=== PATIENT | female | born 1995 | race Caucasian/White ===

== ENCOUNTER 2022-01-15 20:15 | Inpatient (IN) | payer SELFPAY ==
[~2022-01-15] VITALS: Ht 162.6 cm; Wt 72.9 kg
[2022-01-15] VITALS (8 sets, daily range): BP systolic 106–129; BP diastolic 56–70
[2022-01-15] MEDS ORDERED: D5 LR IV SOLUTION 1,000 ML IV ONE (20:43)
[2022-01-15] MEDS ORDERED: AMPICILLIN FOR IV USE 2,000 MG in NS (IVPB) 50 ML IV SCH (20:48)
[2022-01-15] MEDS ORDERED: AMPICILLIN 2,000 MG/14.8 ML (IV USE) ONE (20:52)
[2022-01-15] MEDS ORDERED: NS (IVPB) 50 ML ONE (20:53)
[2022-01-15 20:58] LABS: BASOPHILS % (AUTO) 0 % (0-10); EOSINOPHILS % (AUTO) 0 % (0-10); HEMATOCRIT 28 % (35-52); HEMOGLOBIN 8.5 g/dL (11.5-16.0); LYMPHOCYTES # (AUTO) 1.1 10^3/uL (1.0-4.0); LYMPHOCYTES % (AUTO) 17 % (12-44); MEAN CORPUSCULAR HEMOGLOBIN 25 pg (25-34); MEAN CORPUSCULAR HGB CONC 30 g/dL (32-36); MEAN CORPUSCULAR VOLUME 82 fL (80-99); MEAN PLATELET VOLUME 11.4 fL (9.0-12.2); MONOCYTES # (AUTO) 0.7 10^3/uL (0.0-1.0); MONOCYTES % (AUTO) 10 % (0-12); NEUTROPHILS # (AUTO) 4.6 10^3/uL (1.8-7.8); NEUTROPHILS % (AUTO) 72 % (42-75); PLATELET COUNT 160 10^3/uL (130-400); WHITE BLOOD COUNT 6.4 10^3/uL (4.3-11.0)
[2022-01-15] MEDS ORDERED: D5 LR IV SOLUTION 1,000 ML IV SCH (21:00)
[2022-01-15] MEDS ORDERED: MINERAL OIL 30 ML OIL TOP PRN (21:00)
[2022-01-15] MEDS ORDERED: LIDOCAINE/EPI 2% 1:200,00 (XYLOCAINE) 10 ML VIAL ONE (21:31)
[2022-01-15] MEDS ORDERED: OXYTOCIN PRE-MIX DRIP 500 ML IV ONE ×2 (21:31→23:11)
--- NOTE | 2022-01-15 21:35 | History & Physical-OB ---
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) Ultrasounds: No ultrasounds Obstetrical Complications: None Medical Complications: None Obstetrical History Hx : 5 Hx Para: 4 Hx # Term Pregnancies: 4 Hx # Pregnancies: 1 Number of Living Children: 4 Delivery History Hx Large For Gestational Age I: Yes Patient Past Medical History denies Immunizations Influenza Vaccine Up-to-Date: No; Not Current Tetanus Booster (TDap): Unknown Rubella: unknown RPR/VDRL: Unknown GBS Status: Unknown HBsAG: Unknown OB - Admission Exam Physical Exam Vitals: Vital Signs Abdomen: Gravid Cervical Dilatation: 7cm Effacement: 100% Station: +1 Membranes: Ruptured (AROM clear fluid) Heart Rate: 150's Accelerations: Accelerations Present Decelerations: No Decelerations Short Term Variability: Present School Adjustment Counselor Variability: Average (6-25) Contractions on Admission: 6-10 Minutes Apart Intensity: Moderate Labs Laboratory Tests Test 01/15/22 20:45 Range/Units White Blood Count 6.4 4.3-11.0 10^3/uL Red Blood Count 3.42 L 3.80-5.11 10^6/uL Hemoglobin 8.5 L 11.5-16.0 g/dL Hematocrit 28 L 35-52 % Mean Corpuscular Volume 82 80-99 fL Mean Corpuscular Hemoglobin 25 25-34 pg Mean Corpuscular Hemoglobin Concent 30 L 32-36 g/dL Red Cell Distribution Width 16.9 H 10.0-14.5 % Platelet Count 160 130-400 10^3/uL Mean Platelet Volume 11.4 9.0-12.2 fL Immature Granulocyte % (Auto) 1 % Neutrophils (%) (Auto) 72 42-75 % Lymphocytes (%) (Auto) 17 12-44 % Monocytes (%) (Auto) 10 0-12 % Eosinophils (%) (Auto) 0 0-10 % Basophils (%) (Auto) 0 0-10 % Neutrophils # (Auto) 4.6 1.8-7.8 10^3/uL Lymphocytes # (Auto) 1.1 1.0-4.0 10^3/uL Monocytes # (Auto) 0.7 0.0-1.0 10^3/uL Eosinophils # (Auto) 0.0 0.0-0.3 10^3/uL Basophils # (Auto) 0.0 0.0-0.1 10^3/uL Immature Granulocyte # (Auto) 0.1 0.0-0.1 10^3/uL OB - Assessment/Plan/Diagnosis Assessment Assessment: active labor Admission Dx 37 week TRISTA Admission Status: Inpatient Order (span 2 midnights) Reason for Inpatient Admission: labor and delivery Plan Plan: Expectant Management Other Plan 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
[2022-01-15] MEDS ORDERED: CATHETER FLUSH 10 ML SYR IV SCH (22:00)
[2022-01-15] MEDS ORDERED: MINERAL OIL CONCENTRATE 99.9% 15 ML UDC ONE (22:16)
[2022-01-15] MEDS: OXYTOCIN PRE-MIX DRIP 500 ML IV SCH ×2 (22:41→23:17)
--- NOTE | 2022-01-15 22:59 | OB Labor & Delivery Record ---
Vag Delivery Note Vag Delivery Note Date of Delivery: 01/15/22 Preoperative Diagnosis: Suzanne Bueno is a (26 /Para 5 / 4, Gestational Age (wks)37with [] Postoperative Diagnosis: Same Surgeon: ANDRA PITTS Anesthesia: none Delivery Type: spontaneous vaginal Findings: Viable female , apgars 7/8, weight 8#2 Lacerations: first degree laceration repaired Intact placenta with 3 vessel cord. No nuchal cord, body cord or shoulder dystocia Estimated Blood Loss: 75 ml Complications: None Condition: Stable Description of Procedure: The patient is a 26 year old female who presented in active labor at 7cm. She was admitted and informed consent was obtained. Her labor course was unremarkable. She progressed to complete dilatation and began to push. She was then set up for delivery. The 's head was delivered atraumatically in the DEIRDRE position. The shoulders and remainder of the infant's body were then delivered without difficulty. Upon delivery, the head was held below the level of the perineum and the mouth and nares were bulb suctioned. The cord was doubly clamped and cut and placed on the maternal abdomen. An intact placenta with 3- vessel cord delivered via Flako and there was found to be minimal bleeding.~ Vigorous fundal massage was performed and the fundus was found to be firm. IV oxytocin was given. Examination of the vagina and perineum revealed a first degree laceration repaired in the usual fashion with 3-0 vicryl suture. Following the repair, sponge, instrument and needle counts were correct. Mom and baby were both in stable condition in the labor suite. Vitals - Labs Vital Signs - I&O Vital Signs Date Time Temp Pulse Resp B/P (MAP) Pulse Ox O2 Delivery O2 Flow Rate FiO2 01/15/22 20:36 36.6 122 18 127/58 (81) 100 Room Air 01/15/22 20:36 36.6 122 18 100 Room Air Labs Laboratory Tests 01/15/22 20:45: White Blood Count 6.4, Red Blood Count 3.42L, Hemoglobin 8.5L, Hematocrit 28L, Mean Corpuscular Volume 82, Mean Corpuscular Hemoglobin 25, Mean Corpuscular Hemoglobin Concent 30L, Red Cell Distribution Width 16.9H, Platelet Count 160, Mean Platelet Volume 11.4, Immature Granulocyte % (Auto) 1, Neutrophils (%) (Aut o) 72, Lymphocytes (%) (Auto) 17, Monocytes (%) (Auto) 10, Eosinophils (%) (Auto) 0, Basophils (%) (Auto) 0, Neutrophils # (Auto) 4.6, Lymphocytes # (Auto) 1.1, Monocytes # (Auto) 0.7, Eosinophils # (Auto) 0.0, Basophils # (Auto) 0.0, Immature Granulocyte # (Auto) 0.1 01/15/22 20:48: ANDRA PITTS DO Jan 15, 2022 22:59
[2022-01-15] MEDS ORDERED: WITCH HAZEL(TUCKS) 40 EA JAR TOP PRN (23:15)
[2022-01-15] MEDS ORDERED: BENZOCAINE/MENTHOL (DERMOPLAST) 56 ML CAN TP PRN (23:15)
[2022-01-15] MEDS ORDERED: MEASLES,MUMPS,RUBELLA 1 EA INJ SQ ONE (23:15)
[2022-01-15] MEDS ORDERED: TETANUS,DIPTH,PERTUSS P/F (BOOSTRIX) 0.5 ML VIAL IM ONE (23:15)
[2022-01-15] MEDS ORDERED: IBUPROFEN 600 MG (MOTRIN) TAB PO ONE (23:57)
[2022-01-15] MEDS: IBUPROFEN 600 MG (MOTRIN) TAB PO SCH (23:59)
[2022-01-16] VITALS (8 sets, daily range): BP systolic 90–107; BP diastolic 50–59
[2022-01-16] MEDS ORDERED: AMPICILLIN FOR IV USE 1,000 MG in NS (IVPB) 50 ML IV SCH (01:00)
[2022-01-16] MEDS ORDERED: CATHETER FLUSH 10 ML SYR IV SCH (06:00)
[2022-01-16] MEDS: IBUPROFEN 600 MG (MOTRIN) TAB PO SCH ×4 (06:57→23:50)
[2022-01-16 07:18] LABS: BASOPHILS % (AUTO) 0 % (0-10); EOSINOPHILS % (AUTO) 0 % (0-10); HEMATOCRIT 27 % (35-52); LYMPHOCYTES # (AUTO) 1.2 10^3/uL (1.0-4.0); LYMPHOCYTES % (AUTO) 23 % (12-44); MEAN CORPUSCULAR HEMOGLOBIN 25 pg (25-34); MEAN CORPUSCULAR HGB CONC 30 g/dL (32-36); MEAN CORPUSCULAR VOLUME 82 fL (80-99); MEAN PLATELET VOLUME 11.5 fL (9.0-12.2); MONOCYTES # (AUTO) 0.7 10^3/uL (0.0-1.0); MONOCYTES % (AUTO) 13 % (0-12); NEUTROPHILS # (AUTO) 3.2 10^3/uL (1.8-7.8); NEUTROPHILS % (AUTO) 63 % (42-75); PLATELET COUNT 131 10^3/uL (130-400)
[2022-01-16] MEDS: DOCUSATE SODIUM 100 MG (COLACE) CAP PO SCH ×2 (09:21→21:51)
[2022-01-16] MEDS: FERROUS SULF 325 MG (IRON) TAB PO SCH (09:21)
[2022-01-16] MEDS: PRENATAL VITAMIN 1 EA TAB PO SCH (09:21)
[2022-01-17 06:14] VITALS: BP 101/61
[2022-01-17] MEDS: IBUPROFEN 600 MG (MOTRIN) TAB PO SCH (06:14)
[2022-01-17 08:15] VITALS: BP 98/55
--- NOTE | 2022-01-17 09:32 | Short Stay Summary ---
Discharge Summary Hospital Course Final Diagnosis: see problem List Hospital Course Date of Admission: Jan 15, 2022 at 20:41 Family Physician/Provider: No physician Date of Discharge: 01/17/22 Hospital Course: Routine course. Labs and Pending Lab Test: Laboratory Tests 01/15/22 20:45: White Blood Count 6.4, Red Blood Count 3.42L, Hemoglobin 8.5L, Hematocrit 28L, Mean Corpuscular Volume 82, Mean Corpuscular Hemoglobin 25, Mean Corpuscular Hemoglobin Concent 30L, Red Cell Distribution Width 16.9H, Platelet Count 160, Mean Platelet Volume 11.4, Immature Granulocyte % (Auto) 1, Neutrophils (%) (Auto) 72, Lymphocytes (%) (Auto) 17, Monocytes (%) (Auto) 10, Eosinophils (%) (Auto) 0, Basophils (%) (Auto) 0, Neutrophils # (Auto) 4.6, Lymphocytes # (Auto) 1.1, Monocytes # (Auto) 0.7, Eosinophils # (Auto) 0.0, Basophils # (Auto) 0.0, Immature Granulocyte # (Auto) 0.1 01/15/22 20:48: Thyroid Stimulating Hormone (TSH) 0.11L, Syphilis Serology Non-Reactive, Hepatitis B Surface Antigen Non-Reactive, HIV (1&2) Ag and Ab Screen Referral Non-Reactive, Rubella IgG Antibody <0.10, Rubella IgG Ab Interpretation Negative, Rubeola (Measles) IgG Antibody <5.0, Rubeola (Measles) IgG Ab Interpret Negative, Rubeola (Measles) IgM Antibody <1:10 01/16/22 06:45: White Blood Count 5.0, Red Blood Count 3.23L, Hemoglobin 8.0L, Hematocrit 27L, Mean Corpuscular Volume 82, Mean Corpuscular Hemoglobin 25, Mean Corpuscular Hemoglobin Concent 30L, Red Cell Distribution Width 16.8H, Platelet Count 131, Mean Platelet Volume 11.5, Immature Granulocyte % (Auto) 1, Neutrophils (%) (Auto) 63, Lymphocytes (%) (Auto) 23, Monocytes (%) (Auto) 13H, Eosinophils (%) (Auto) 0, Basophils (%) (Auto) 0, Neutrophils # (Auto) 3.2, Lymphocytes # (Auto) 1.2, Monocytes # (Auto) 0.7, Eosinophils # (Auto) 0.0, Basophils # (Auto) 0.0, Immature Granulocyte # (Auto) 0.0 Assessment/Pt Instructions Follow-up at [facility] in 6 weeks. Discharge Instructions Discharge Diet: No Restrictions Discharge Physical Examination General Appearance: Alert, Oriented X3, Cooperative Psych/Mental Status: Mood NL Allergies: Coded Allergies: No Known Drug Allergies (Unverified , 01/15/22) Discharge Summary Date of Admission Jan 15, 2022 at 20:41 Date of Discharge ANDRA PITTS DO Jan 17, 2022 09:32
--- NOTE | 2022-01-17 09:32 | Progress Note ---
Subjective Subjective/Events-last exam Late entry: seen 01/16/22 at 0900 Doing well. Breast feeding going well. Lochia decreased. Objective Exam Last Set of Vital Signs Vital Signs Date Time Temp Pulse Resp B/P (MAP) Pulse Ox O2 Delivery O2 Flow Rate FiO2 01/17/22 06:14 36.0 76 18 101/61 (74) 100 Room Air Capillary Refill : Less Than 3 Seconds General: Alert, Oriented X3, Cooperative Lungs: Clear to Auscultation Psych/Mental Status: Mood NL Assessment/Plan Assessment/Plan Assessment & Plan PPD#1 s/p - routine care. Anemia of - started po iron ANDRA PITTS DO Jan 17, 2022 09:32
[2022-01-17] MEDS: PRENATAL VITAMIN 1 EA TAB PO SCH (10:44)
[2022-01-17] MEDS: FERROUS SULF 325 MG (IRON) TAB PO SCH (10:45)
[2022-01-17] MEDS: DOCUSATE SODIUM 100 MG (COLACE) CAP PO SCH (10:45)
== END 2022-01-17 13:00 | disposition home or self-care (01) | DRG 807 ==
LOC: WSo 20:15 → LDRP 20:15 → WSo 20:41 → LDRP 01-16 00:50
PROVIDERS: ADMIT Family Medicine; ATTEND Family Medicine
PROC: 10E0XZZ Delivery of Products of Conception, External Approach (ICD-10-PCS; principal; 2022-01-15)
PROC: 0HQ9XZZ Repair Perineum Skin, External Approach (ICD-10-PCS; 2022-01-15)
DX: O99.02 Anemia complicating childbirth (principal); Z37.0 Single live birth; D64.9 Anemia, unspecified; Z3A.37 37 weeks gestation of pregnancy; O70.0 First degree perineal laceration during delivery
CPT/HCPCS: 36415; 84443; 85025; 86703; 86762; 86765; 86780; 86850; 86900; 86901; 87340; 99212